=== PATIENT | male | born 1990 | race Hispanic/Latino ===

== ENCOUNTER 2017-12-04 08:29 | Emergency (ER) | payer OTHER ==
[2017-12-04 08:55] VITALS: BP 110/67
--- NOTE | 2017-12-04 09:37 | XRay Report ---
LEFT ANKLE RADIOGRAPHS INDICATION: Injury, pain. Hit back of foot with a forklift. COMPARISON: None similar. FINDINGS: AP and lateral left ankle radiographs demonstrate intact mortise, malleoli and talar dome contours. Small dorsal and plantar calcaneal spurs noted. Approximately 0.6 cm ossific density at the talonavicular joint dorsally appears corticated, possibly an ossicle or maybe old. Mild overlying dorsal soft tissue swelling though suspected. CONCLUSION: 1. Mild dorsal soft tissue swelling over left midfoot with a subjacent 0.6 cm ossific density at the talonavicular joint, as described. Please also correlate clinically in this patient with provided history of trauma to the back of the foot. 2. Mild degenerative calcaneal spurring. Thank you for the opportunity to participate in this patient's care.
--- NOTE | 2017-12-04 09:39 | XRay Report ---
LEFT FOOT RADIOGRAPHS INDICATION: Injury, pain. Hit back of foot with forklift. COMPARISON: None similar at this institution. FINDINGS: AP and lateral left foot radiographs demonstrate a 0.6 cm ossific density at the talonavicular joint, possibly an ossicle versus old degenerative or post traumatic, though with mild overlying soft tissue swelling on the lateral view. Small dorsal and plantar calcaneal spurs also noted. Intact remainder exam without focal suspicious erosions. CONCLUSION: Small ossific density at the talonavicular joint with mild overlying soft tissue swelling and few other findings, as above. Directed clinical correlation recommended. Thank you for the opportunity to participate in this patient's care.
--- NOTE | 2017-12-04 09:48 | Emergency Department Report ---
HPI - General Chief Complaint: Extremity Injury, Lower Time Seen by Provider: 12/04/17 09:19 - HPI HPI: 27-year-old male presents to the emergency department with complaint of pain to the top of the left foot and around the left ankle, as well as a large abrasion and a wound to the back of the left ankle over the Achilles region, after he was hit by a pallet can technician and/or small forklift. He was hit and then his foot and it appeared to get twisted underneath one of the forks. He is able to move it but has some pain with movement and trouble with ambulation and/or bearing weight. He denies any past medical history. He has not taken anything for her symptoms prior to presentation. ED Past Medical Hx - Past Medical History Previous Medical History?: No - Surgical History Past Surgical History?: No - Social History Smoking Status: Current Every Day Smoker Substance Use Type: None - Medications Home Medications: Home Medications Medication Instructions Recorded Confirmed Last Taken Type Azithromycin [Zithromax Z-KATHARINE] 250 mg PO DAILY #6 tablet 07/25/13 Unknown Rx Ibuprofen [Motrin] 800 mg PO TID PRN #15 tablet 07/25/13 Unknown Rx HYDROcodone/ACETAMINOPHEN [[place] 1 each PO QDAY #10 tablet 12/04/17 Unknown Rx 5-325 Tablet] ED Review of Systems ROS: Stated complaint: LEFT ANKLE INJURY Other details as noted in HPI Comment: All other systems reviewed and negative Constitutional: denies: chills, fever Eyes: denies: eye pain, eye discharge, vision change ENT: denies: ear pain, throat pain Respiratory: denies: cough, shortness of breath, wheezing Cardiovascular: denies: chest pain, palpitations Gastrointestinal: denies: abdominal pain, nausea, diarrhea Genitourinary: denies: urgency, dysuria Musculoskeletal: joint swelling, arthralgia Skin: lesions. denies: pruritus Neurological: denies: headache, weakness, paresthesias Physical Exam - Physical Exam Vital Signs: Vital Signs 12/04/17 08:51 Temperature 98.6 F Pulse Rate 108 H Respiratory 18 Rate Blood Pressure 110/67 O2 Sat by Pulse 98 Oximetry Physical Exam: GENERAL: The patient is well-developed well-nourished. HENT: Normocephalic. Atraumatic. Patient has moist mucous membranes. EYES: Extraocular motions are intact. NECK: Supple. Trachea is midline. CHEST/LUNGS: Clear to auscultation. There is no respiratory distress noted. HEART/CARDIOVASCULAR: Regular. There is no tachycardia. There is no murmur. ABDOMEN: There is no abdominal distention. SKIN: There is some nonpitting swelling to the dorsum of the left midfoot. There is some mild swelling to the back of the ankle over the Achilles or the patient has a linear abrasion and/or skin tear. NEURO: The patient is awake, alert, and oriented. The patient is cooperative. The patient has normal speech MUSCULOSKELETAL: There is some tenderness palpation to the left Achilles and to the bilateral ankle and dorsal midfoot. There is no limitation range of motion but he has pain with movement and palpation. Pedal pulses +2 over 4 to the affected left foot. ED Course Vital Signs 12/04/17 08:51 Temperature 98.6 F Pulse Rate 108 H Respiratory 18 Rate Blood Pressure 110/67 O2 Sat by Pulse 98 Oximetry ED Medical Decision Making - Radiology Data Radiology results: image reviewed interpreted by me: X-rays of the left foot and ankle do not show any fracture, dislocation or any acute process. There are a few areas of bone spurs and/or calcifications that appear more chronic. - Medical Decision Making Patient's x-rays do not show any obvious fracture or dislocation. There are a few areas of ossification, calcifications. Appears old secondary to its rounded appearance. However it is in the area with the patient has discomfort. He has been placed in a splint and given crutches to be nonweightbearing he has been given a tetanus vaccination. We discussed wound care. If he does not have to follow-up with a Workmen's Compensation physician, he has been given a referral for podiatry and orthopedist. He's been encouraged to return to the emergency Department with any worsening of his symptoms or any acute distress. - Differential Diagnosis fracture, dislocation, contusion, sprain, strain Critical Care Time: No Critical care attestation.: If time is entered above; I have spent that time in minutes in the direct care of this critically ill patient, excluding procedure time. ED Disposition Clinical Impression: Left foot pain Left ankle pain Qualifiers: Chronicity: acute Qualified Code(s): M25.572 - Pain in left ankle and joints of left foot Disposition: DC-01 TO HOME OR SELFCARE Is pt being admited?: No Condition: Stable Instructions: Ankle Sprain (ED), Foot Contusion (ED), Arthralgia (ED) Additional Instructions: I have given you a referral for a liquor establishment manager, Dr. Cheek, and an orthopedist , Dr. Carnes, but she may need to follow up with whomever your job requires if this is a Workmen's Compensation case. Otherwise, please feel free to follow up with one of these referred physicians. Use the splint and crutches as necessary until follow-up with a liquor establishment manager or orthopedist. You can use soap and water to clean the wound to the back of the ankle but then keep it dry. Please make sure you are seen immediately if you start to develop some surrounding redness or discharge of pus or signs or symptoms of infection. Also , return to the emergency Department with any worsening of your symptoms or any acute distress. You have been prescribed a medication that is sedating and therefore should not be taken prior to driving, working, and responsible for children and in no way should be mixed with alcohol of any quantity. Prescriptions: HYDROcodone/ACETAMINOPHEN [[place] 5-325 Tablet] 1 each PO QDAY #10 tablet Referrals: PRIMARY CARE, [Primary Care Provider] - 3-5 Days ISSA CHEEK DPM [Staff Physician] - 3-5 Days ABEL CARNES MD [Staff Physician] - 3-5 Days Forms: Work/School Release Form(ED) Time of Disposition: 09:49
[2017-12-04] MEDS: BOOSTRIX IM ONE (09:55)
== END 2017-12-04 10:31 | disposition home or self-care (01) ==
LOC: ED 08:29
DX: S90.512A Abrasion, left ankle, initial encounter (principal); M25.572 Pain in left ankle and joints of left foot; X58.XXXA Exposure to other specified factors, initial encounter; Y93.89 Activity, other specified; Y92.89 Other specified places as the place of occurrence of the external cause; Y99.8 Other external cause status
CPT/HCPCS: 90471; 90715

== ENCOUNTER 2020-01-30 22:40 | Emergency (ER) | payer SELFPAY ==
[2020-01-30 22:48] VITALS: BP 123/83
== END 2020-01-31 02:00 ==
LOC: ED 22:40
DX: H92.03 Otalgia, bilateral (principal); Z53.21 Procedure and treatment not carried out due to patient leaving prior to being seen by health care provider

== ENCOUNTER 2020-05-12 23:58 | Emergency (ER) | payer SELFPAY ==
[2020-05-13 00:06] VITALS: BP 108/88
== END 2020-05-13 09:28 | disposition left against medical advice (07) ==
LOC: ED 23:58
DX: R05 Cough (principal); Z53.21 Procedure and treatment not carried out due to patient leaving prior to being seen by health care provider

== ENCOUNTER 2020-11-29 01:08 | Emergency (ER) | payer SELFPAY ==
[2020-11-29 02:02] VITALS: BP 115/89
[2020-11-29] MEDS ORDERED: KETOROLAC 30 MG/1 ML INJ IV ONE (03:09)
--- NOTE | 2020-11-29 03:12 | Emergency Department Report ---
<MERLYSALENA ZAMBRANO - Last Filed: 11/29/20 07:13> ED General Adult HPI - General Chief complaint: Dental/Oral Stated complaint: TOOTH ABSCESS Time Seen by Provider: 11/29/20 03:06 Source: patient Mode of arrival: Ambulatory Limitations: No Limitations - History of Present Illness Initial comments: 30-year-old male patient presents to the emergency department with complaints of right-sided dental pain starting 1 week ago and right-sided jaw swelling starting 24 hours ago. No preceding fall, trauma, or injury. Dental pain is localized to the right lower molar. No current antibiotic use. Patient has been taking Ibuprofen as often as possible for pain. He is not currently under the care of a dentist. Patient was diagnosed with a Penicillin allergy as a young child however he is unsure of his reaction to Penicillin. He is not sure if he has tolerated cephalosporins on previous occasions. Denies fever, chills, dysphagia, hoarseness, shortness of breath, neck pain. Denies all other complaints at this time. - Related Data Previous Rx's Medication Instructions Recorded Last Taken Type Azithromycin [Zithromax Z-KATHARINE] 250 mg PO DAILY #6 tablet 07/25/13 Unknown Rx Ibuprofen [Motrin] 800 mg PO TID PRN #15 tablet 07/25/13 Unknown Rx HYDROcodone/ACETAMINOPHEN [[place] 1 each PO QDAY #10 tablet 12/04/17 Unknown Rx 5-325 Tablet] Azithromycin [Zithromax Z-KATHARINE] 250 mg PO DAILY #6 tablet 12/13/19 Unknown Rx Chlorhexidine Mouthwash [Peridex] 15 ml MM BID #1 bottle 11/29/20 Unknown Rx Clindamycin [Clindamycin CAP] 300 mg PO Q6H #28 capsule 11/29/20 Unknown Rx Naproxen 500 mg PO Q12H PRN #12 tablet 11/29/20 Unknown Rx Prednisone [predniSONE 10 mg 10 mg PO .TAPER #1 tab.ds.pk 11/29/20 Unknown Rx (6-Day Pack, 21 Tabs)] Allergies Allergy/AdvReac Type Severity Reaction Status Date / Time Penicillins Allergy Rash Verified 07/25/13 10:12 ED Review of Systems Other: GENERAL: Negative for fever. ENT: Positive for dental pain and jaw swelling. CARDIOVASCULAR: Negative for chest pain. PULMONARY: Negative for shortness of breath. GASTROINTESTINAL: Negative for abdominal pain. MUSCULOSKELETAL: Negative for back pain. NEUROLOGICAL: Negative for headache. INTEGUMENTARY: Negative for rash. ED Past Medical Hx - Past Medical History Previous Medical History?: Yes Hx Psychiatric Treatment: Yes (Depression) Additional medical history: sinus problems - Surgical History Past Surgical History?: No - Social History Smoking Status: Never Smoker Substance Use Type: None - Medications Home Medications: Home Medications Medication Instructions Recorded Confirmed Last Taken Type Azithromycin [Zithromax Z-KATHARINE] 250 mg PO DAILY #6 tablet 07/25/13 Unknown Rx Ibuprofen [Motrin] 800 mg PO TID PRN #15 tablet 07/25/13 Unknown Rx HYDROcodone/ACETAMINOPHEN [[place] 1 each PO QDAY #10 tablet 12/04/17 Unknown Rx 5-325 Tablet] Azithromycin [Zithromax Z-KATHARINE] 250 mg PO DAILY #6 tablet 12/13/19 Unknown Rx Chlorhexidine Mouthwash [Peridex] 15 ml MM BID #1 bottle 11/29/20 Unknown Rx Clindamycin [Clindamycin CAP] 300 mg PO Q6H #28 capsule 11/29/20 Unknown Rx Naproxen 500 mg PO Q12H PRN #12 tablet 11/29/20 Unknown Rx Prednisone [predniSONE 10 mg 10 mg PO .TAPER #1 tab.ds.pk 11/29/20 Unknown Rx (6-Day Pack, 21 Tabs)] ED Physical Exam - General Limitations: No Limitations ED Medical Decision Making - Lab Data Result diagrams: 11/29/20 03:24 11/29/20 03:24 - Medical Decision Making Patient presents to the emergency department with complaints of dental pain and facial swelling. Tachycardic on arrival. Mild leukocytosis noted on laboratory evaluation. CT obtained for further evaluation of possible buccal space abscess. Care of patient transferred to Jerman March NP for final disposition pending radiology results. Clindamycin 900 mg IV requested and ordered. ED Disposition Clinical Impression: Dental abscess Disposition: - TO HOME OR SELFCARE Condition: Stable Instructions: Dental Abscess, [id number] Additional Instructions: Follow-up with a oral surgeon in 24 hours or if symptoms worsen and continue return to emergency room as soon as possible. [facility] [employer] Address: [facility] [address], [place] [address] Hours: Monday Closed Monday 8AM-1PM, 2-5PM Monday 8AM-1PM, 2-5PM Monday 8AM-1PM, 2-5PM 8AM-1PM, 2-5PM Monday 7AM-2PM Monday Closed Prescriptions: Clindamycin [Clindamycin CAP] 300 mg PO Q6H #28 capsule Naproxen 500 mg PO Q12H PRN #12 tablet PRN Reason: Pain , Severe (7-10) Chlorhexidine Mouthwash [Peridex] 15 ml MM BID #1 bottle Prednisone [predniSONE 10 mg (6-Day Pack, 21 Tabs)] 10 mg PO .TAPER #1 tab.ds.pk Referrals: PRIMARY CAREMD [Primary Care Provider] - 3-5 Days JAHAIRA ANGEL MD [Staff Physician] - 3-5 Days [facility] [Outside] - 3-5 Days Forms: Work/School Release Form(ED) <JERMAN MARCH - Last Filed: 11/29/20 08:30> ED Review of Systems ROS: Stated complaint: TOOTH ABSCESS Other details as noted in HPI ED Course Vital Signs 11/29/20 11/29/20 11/29/20 02:00 03:06 07:17 Temperature 99.7 F H Pulse Rate 118 H 87 Respiratory 18 18 18 Rate Blood Pressure 115/89 O2 Sat by Pulse 96 98 Oximetry 11/29/20 07:51 Temperature 98.5 F Pulse Rate Respiratory Rate Blood Pressure O2 Sat by Pulse Oximetry - Reevaluation(s) Reevaluation #1: 11/29/20 07:18 Patient is stable and was examined by me at this time. Patient has right lower dental abscess and drainage draining currently. I squeezed in the buccal area and about 2 to 3 cc of purulent drainage noted. Patient does not have any trismus. Repeat vital signs stable with no tachycardia or fever. Pending CT scan. Pain is under control. Clindamycin ordered. ED Medical Decision Making - Lab Data Result diagrams: 11/29/20 03:24 11/29/20 03:24 Lab Results 11/29/20 11/29/20 Range/Units 03:24 03:24 WBC 12.3 H (4.5-11.0) K/mm3 RBC 5.08 H (3.65-5.03) M/mm3 Hgb 14.8 (11.8-15.2) gm/dl Hct 43.3 (35.5-45.6) % MCV 85 (84-94) fl MCH 29 (28-32) pg MCHC 34 (32-34) % RDW 13.5 (13.2-15.2) % Plt Count 345 (140-440) K/mm3 Lymph % (Auto) 18.9 (13.4-35.0) % [place] % (Auto) 11.3 H (0.0-7.3) % Eos % (Auto) 1.3 (0.0-4.3) % Baso % (Auto) 0.9 (0.0-1.8) % Lymph # (Auto) 2.3 (1.2-5.4) K/mm3 [place] # (Auto) 1.4 H (0.0-0.8) K/mm3 Eos # (Auto) 0.2 (0.0-0.4) K/mm3 Baso # (Auto) 0.1 (0.0-0.1) K/mm3 Seg Neutrophils % 67.6 (40.0-70.0) % Seg Neutrophils # 8.3 H (1.8-7.7) K/mm3 Sodium 140 (137-145) mmol/L Potassium 4.5 (3.6-5.0) mmol/L Chloride 101.1 (98-107) mmol/L Carbon Dioxide 27 (22-30) mmol/L Anion Gap 16 mmol/L BUN 16 (9-20) mg/dL Creatinine 0.9 (0.8-1.3) mg/dL Estimated GFR > 60 ml/min BUN/Creatinine Ratio 18 % Glucose 80 (75-100) mg/dL Calcium 9.8 (8.4-10.2) mg/dL Total Bilirubin 0.40 (0.1-1.2) mg/dL AST 23 (5-40) units/L ALT 24 (7-56) units/L Alkaline Phosphatase 77 (35-129) units/L Total Protein 7.1 (6.3-8.2) g/dL Albumin 4.7 (3.9-5) g/dL Albumin/Globulin Ratio 2.0 % - Radiology Data [facility] [address] [place] [address] Cat Scan Report Signed Patient: CODY MINAYA MR#: [id number] : 1990 Acct:[id number] Age/Sex: 30 / M ADM Date: 11/29/20 Loc: ED Attending Dr: Ordering Physician: JR TURK Date of Service: 11/29/20 Procedure(s): CT facial bones w con Accession Number(s): [id number] cc: JR TURK CT MAXILLOFACIAL WITH CONTRAST INDICATION / CLINICAL INFORMATION: dental abscess/jaw swelling; buccal space abscess. TECHNIQUE: All CT scans at this location are performed using CT dose reduction for ALARA by means of automated exposure control. Imaging performed after the administration of 100 cc Omnipaque 300 intravenous contrast. COMPARISON: None available. FINDINGS: FACIAL BONES: No fracture or other significant abnormality. PARANASAL SINUSES: Near-complete opacification of the left maxillary antrum with some high attenuation components which can be seen in the setting of allergic fungal sinusitis. There is associated osseous thickening which also suggests chronic sinusitis. Mild mucosal thickening at the inferior right maxillary antrum. Mild patchy ethmoid air cell opacification. ORBITS: No significant abnormality. SOFT TISSUES: 2.6 x 1.2 x 2.4 cm focal fluid collection adjacent to the right mandibular molar/premolar teeth (axial series 2 image 26). Thin surrounding wall of soft tissue with mild enhancement. There is moderate edema in the adjacent soft tissues. Additionally there is a tiny focus of gas in this region as well as considerable dental disease in both maxillary and mandibular molar/premolar teeth. Mild right submandibular adenopathy, likely reactive. VISUALIZED INTRACRANIAL STRUCTURES: No significant abnormality. ADDITIONAL FINDINGS: None. IMPRESSION: 1. 2.6 cm periodontal abscess along the right mandibular premolar/molar teeth with associated cellulitis. 2. Near complete opacification of the left maxillary antrum with findings suggestive of chronic allergic fungal sinusitis. 3. Additional findings as above. Signer Name: Abel Herzog MD Signed: 11/29/2020 8:18 AM Workstation Name: [id number] Transcribed By: Dictated By: ABEL HERZOG III Electronically Authenticated By: ABEL HERZOG III Signed Date/Time: 11/29/20817 DD/ TD/TT: - Medical Decision Making Patient was originally seen by JR Pryor and signed out to me for pending CT scan. CT scan has been reviewed and dictated by radiologist. The abscess is currently draining. IV clindamycin initiated. Vital signs are stable prior to discharge. Patient has pain under control at this time. Swelling has significantly decreased after drainage noted. Patient was instructed to follow-up with a oral surgeon in 24 hours or if symptoms worsen and continue return to emergency room as soon as possible. At time of discharge, the patient does not seem toxic or ill in appearance. No acute signs of distress noted. Patient agrees to discharge treatment plan of care. No further questions noted by the patient. Critical care attestation.: If time is entered above; I have spent that time in minutes in the direct care of this critically ill patient, excluding procedure time. ED Disposition Is pt being admited?: No Does the pt Need Aspirin: No Time of Disposition: 08:29
[2020-11-29 03:58] LABS: Basophils # (Auto) 0.1 K/mm3 (0.0-0.1); Basophils % (Auto) 0.9 % (0.0-1.8); Eosinophils # (Auto) 0.2 K/mm3 (0.0-0.4); Eosinophils % (Auto) 1.3 % (0.0-4.3); Hematocrit 43.3 % (35.5-45.6); Hemoglobin 14.8 gm/dl (11.8-15.2); Lymphocytes # (Auto) 2.3 K/mm3 (1.2-5.4); Lymphocytes % (Auto) 18.9 % (13.4-35.0); Mean Corpuscular HGB Conc 34 % (32-34); Mean Corpuscular Volume 85 fl (84-94); Monocytes # (Auto) 1.4 K/mm3 (0.0-0.8); Monocytes % (Auto) 11.3 % (0.0-7.3); Platelet Count 345 K/mm3 (140-440); Red Blood Count 5.08 M/mm3 (3.65-5.03); Red Cell Distribution Width 13.5 % (13.2-15.2)
[2020-11-29 04:20] LABS: Alanine Aminotransferase 24 units/L (7-56); Albumin 4.7 g/dL (3.9-5); BUN/Creatinine Ratio 18; Blood Urea Nitrogen 16 mg/dL (9-20); Calcium 9.8 mg/dL (8.4-10.2); Hemolysis Index 4
--- NOTE | 2020-11-29 08:22 | Cat Scan Report ---
CT MAXILLOFACIAL WITH CONTRAST INDICATION / CLINICAL INFORMATION: dental abscess/jaw swelling; buccal space abscess. TECHNIQUE: All CT scans at this location are performed using CT dose reduction for ALARA by means of automated e xposure control. Imaging performed after the administration of 100 cc Omnipaque 300 intravenous contr ast. COMPARISON: None available. FINDINGS: FACIAL BONES: No fracture or other significant abnormality. PARANASAL SINUSES: Near-complete opacification of the left maxillary antrum with some high attenuatio n components which can be seen in the setting of allergic fungal sinusitis. There is associated osseo us thickening which also suggests chronic sinusitis. Mild mucosal thickening at the inferior right ma xillary antrum. Mild patchy ethmoid air cell opacification. ORBITS: No significant abnormality. SOFT TISSUES: 2.6 x 1.2 x 2.4 cm focal fluid collection adjacent to the right mandibular molar/premol ar teeth (axial series 2 image 26). Thin surrounding wall of soft tissue with mild enhancement. There is moderate edema in the adjacent soft tissues. Additionally there is a tiny focus of gas in this re gion as well as considerable dental disease in both maxillary and mandibular molar/premolar teeth. Mi ld right submandibular adenopathy, likely reactive. VISUALIZED INTRACRANIAL STRUCTURES: No significant abnormality. ADDITIONAL FINDINGS: None. IMPRESSION: 1. 2.6 cm periodontal abscess along the right mandibular premolar/molar teeth with associated celluli tis. 2. Near complete opacification of the left maxillary antrum with findings suggestive of chronic aller gic fungal sinusitis. 3. Additional findings as above. Signer Name: Eric Ruiz MD Signed: 11/29/2020 8:18 AM Workstation Name: [id number]
== END 2020-11-29 09:02 | disposition home or self-care (01) ==
LOC: ED 01:08
DX: K04.7 Periapical abscess without sinus (principal); F32.9 Major depressive disorder, single episode, unspecified; Z88.0 Allergy status to penicillin; Z79.899 Other long term (current) drug therapy
CPT/HCPCS: 36415; 70487; 80053; 85025; 96365; 96375; 99284; J1885; Q9967